=== PATIENT | female | born 1980 | race Caucasian/White ===

== ENCOUNTER 2018-10-15 06:58 | Emergency (ER) | payer BC ==
[~2018-10-15] VITALS: Ht 160 cm; Wt 74.4 kg
[2018-10-15 07:13] VITALS: BP 133/87
--- NOTE | 2018-10-15 07:13 | NUR ---
TO BED # 08 AMBULATORY.
[2018-10-15] MEDS ORDERED: KETOROLAC 30 MG/ML VIAL IVP ONE (07:35)
--- NOTE | 2018-10-15 07:35 | NUR ---
PT BIB SELF C/O RT FACIAL PAIN, SWELLING X3 DAYS. PT REPORTS CONSTANT RT SIDED PRESSURE PAIN AT 8/10, PT HAS TREATED WITH IBUPROFEN WITH SOME RELIEF. FACIAL SWELLING PRESENT AROUND RT EYE AND IN FRONT OF RT EAR. PT STATES SHE HAD BEEN SICK FOR 2 WEEKS, WITH SINUSITIS. VSS. ER TO SEE PT. MEDHX:DENIES RX:IBUPROFEN
--- NOTE | 2018-10-15 07:49 | NUR ---
PT TAKEN TO CT AT THIS TIME.
[2018-10-15 07:54] LABS: BASOPHILS # (AUTO) 0.1 K/uL (0.00-0.22); BASOPHILS % (AUTO) 0.7 % (0.0-2.0); EOSINOPHILS # (AUTO) 0.1 K/uL (0-0.4); EOSINOPHILS % (AUTO) 0.6 % (0.0-4.0); HEMATOCRIT 39.2 % (36-48); HEMOGLOBIN 13.3 g/dL (12.0-16.0); LYMPHOCYTES # (AUTO) 1.3 K/uL (2.5-16.5); MEAN CORPUSCULAR HEMOGLOBIN 31 pg (27-31); MEAN CORPUSCULAR HGB CONC 34 g/dL (33-37); MEAN CORPUSCULAR VOLUME 90.4 fL (80-94); MONOCYTES # (AUTO) 0.8 K/uL (0.8-1.0); MONOCYTES % (AUTO) 5.8 % (1.7-9.3); NEUTROPHILS # (AUTO) 10.8 K/uL (1.8-7.7); NEUTROPHILS % (AUTO) 82.9 % (42.2-75.2); PLATELET COUNT (AUTO) 272 K/uL (140-450); RED BLOOD CELL COUNT(AUTO) 4.34 MIL/uL (4.20-5.40); RED CELL DISTRIBUTION WIDTH 13.5 % (11.6-13.7)
--- NOTE | 2018-10-15 07:58 | NUR ---
PT RETURNED FROM CT. PT COMPLAINING OF 7/10 PRESSURE PAIN ON RT FACE. ER MD NOTIFIED. VSS.
[2018-10-15] MEDS ORDERED: MORPHINE SULFATE 4 MG/ML SYR IVP ONE (08:00)
[2018-10-15 08:01] LABS: ANION GAP 14.1 (8-16); CARBON DIOXIDE 26.7 mmol/L (21-32); CREATININE 0.9 mg/dL (0.6-1.3); POTASSIUM 3.8 mmol/L (3.5-5.1)
[2018-10-15 08:48] VITALS: BP 131/80
--- NOTE | 2018-10-15 08:48 | NUR ---
Patient discharged with v/s stable. Written and verbal after care instructions given and explained. Patient alert, oriented and verbalized understanding of instructions. Ambulatory with steady gait. All questions addressed prior to discharge. ID band removed. Patient advised to follow up with PMD. Rx of NORCO, SUDAFED, AND ZOFRAN given. Patient educated on indication of medication including possible reaction and side effects. Opportunity to ask questions provided and answered. PT WAITING IN LOBBY FOR SISTER TO PICK HER UP.
== END 2018-10-15 08:48 | disposition home or self-care (01) ==
LOC: MED 06:58
DX: J32.1 Chronic frontal sinusitis (principal); J32.0 Chronic maxillary sinusitis
CPT/HCPCS: 36415; 70486; 80048; 85025; 96374; 96375; 99284; J1885; J2270